=== PATIENT | female | born 1935 | race Caucasian/White ===

== ENCOUNTER 2017-11-12 18:33 | Inpatient (IN) ==
[2017-11-12] MEDS ORDERED: Furosemide 40 MG TABLET PO PRN (19:27)
[2017-11-12] MEDS ORDERED: MOM Conc 10 ML UD.LIQ PO PRN (19:27)
[2017-11-12] MEDS: Sennosides/Docusate Sodium TABLET PO SCH (21:46)
[2017-11-12] MEDS: OXYCODONE Oral CONC 10 MG/0.5 ML ORAL.SYG SL PRN (22:02)
[2017-11-13] MEDS: *HR* Enoxaparin 30 MG/0.3 ML SYRINGE SQ SCH ×2 (05:41→19:59)
[2017-11-13 06:37] LABS: Basophils % 0.3 %; Eosinophils # 0.2 K/mcL (0.0-0.6); Eosinophils % 3.8 %; Hematocrit 23.9 % (35.3-44.9); Immature Granulocytes % 0.8 % (0-4); Lymphocytes # 0.9 K/mcL (0.6-4.6); Lymphocytes % 13.7 %; Mean Corpuscular HGB Conc 33.5 g/dL (31.6-35.5); Mean Corpuscular Hemoglobin 32.3 pg (28.0-33.3); Mean Corpuscular Volume 96.4 fL (83.0-100.0); Mean Platelet Volume 8.4 fL (9.4-12.4); Monocytes # 0.7 K/mcL (0.0-1.3); Monocytes % 10.7 %; Neutrophils # 4.5 K/mcL (1.6-8.9); Platelet Count 279 K/mcL (140-400); Red Blood Count 2.48 M/mcL (3.82-4.97); Red Cell Distribution Width 14.7 % (11.5-14.5); Segmented Neutrophils % 70.7 %
[2017-11-13 06:46] LABS: Activated Partial Thrombo Time 29.6 Seconds (26.0-36.0)
[2017-11-13 06:54] LABS: BUN/Creatinine Ratio 13 (6-26); Blood Urea Nitrogen 12 mg/dL (8-23); Calcium 8.4 mg/dL (8.6-10.3); Carbon Dioxide 27 mEq/L (23-29); Chloride 98 mEq/L (98-107); Glucose 92 mg/dL (70-105); Osmolality,Calculated 267 (280-300); Potassium 4.3 mEq/L (3.5-5.1); Sodium 129 mEq/L (136-145); eGFR For African Americans > 60 (> 60); eGFR For Non-African Americans 58 (> 60)
[2017-11-13] MEDS: Multivit/Ca/Min/Fe/FA 1 TAB TABLET PO SCH (10:00)
[2017-11-13] MEDS: Primidone 50 MG TABLET PO SCH (10:00)
[2017-11-13] MEDS: Ascorbic Acid 500 MG TABLET PO SCH ×2 (10:01→18:21)
[2017-11-13] MEDS: Sennosides/Docusate Sodium TABLET PO SCH ×2 (10:01→22:07)
[2017-11-13] MEDS: OXYCODONE Oral CONC 10 MG/0.5 ML ORAL.SYG SL PRN (10:01)
--- NOTE | 2017-11-13 12:07 | Internal Med History&Physical ---
Date of Encounter: 11/13/17 Time of Encounter: 12:05 Assessment and Plan (1) S/P hip replacement Current visit: Yes Status: Acute Patient is a recent. Patient underwent left hip hemiarthroplasty on 11/08/2017 and has been recovering well. Patient transferred to this facility for rehabilitation due to deconditioning and unsteady gait. Surgical incision appears healthy at site. Pain is well-controlled with current medications. Patient to be evaluated by physical therapy and awaiting recommendations. Qualifiers: Laterality: left Qualified Code(s): Z96.642 - Presence of left artificial hip joint (2) Urine retention Current visit: Yes Status: Acute Experienced urinary retention postoperatively and had a Leblanc catheter placed prior to her discharge and transferred to this facility. Patient denies any history of UTIs or urinary issues. Patient had urinalysis obtained with culture returning negative. We will start patient on voiding trials to discontinue Leblanc catheter. (3) DVT prophylaxis Current visit: No Status: Acute Patient continues on Lovenox for DVT prophylaxis secondary to orthopedic surgery. We will continue on DVT prophylaxis until patient mobilizes well (4) PAC (premature atrial contraction) Current visit: Yes Status: Acute There is family stated concerns about possible atrial fibrillation. Daughter states that she was informed her mother was in atrial fibrillation at time of admission. Medical records were reviewed which showed several EKGs taken during her hospital stay with each showing sinus rhythm with occasional PACs/ PVCs. No documentation of atrial fibrillation was found. Patient's vital signs had remained stable during her hospitalization. Patient denies any history of palpitations or syncopal symptoms. On exam patient's heart rate was regular with rate of 84. We will continue to monitor and continue with current medications. Patient's current area status was explained at length with family. Internal Medicine - H&P: HPI Chief complaint: left hip replacement Admitted From: Intrahospital Transfer Plans for Post Hospital Care: Home History of present illness: Ms. Narvaez is a 82 year old female who experienced a mechanical fall, which resulted in a left hip fracture. Patient underwent left hip hemiarthroplasty on 11/08/2017. She had a uneventful recovery and was transferred to this facility for further rehabilitation due to deconditioning and unsteady gait. Patient's family stated concerns that they were informed that she had atrial fibrillation during her admission to the [facility], she had several EKGs were taken which showed sinus rhythm with PACs and PVCs. Urinalysis was suggestive of infection but urine culture showed no growth. Patient is doing well at this time although she has issues with urinary retention and was discharged to rehabilitation with a Leblanc catheter, for voiding trial. Currently Leblanc catheter has clear yellow urine received. Patient states that her pain is minimal to her left hip and pain has been well- controlled with current medications. Patient states that she had a BM this morning. Patient has been very appropriate with conversation, but family states that she has a history of mild dementia and poor short-term memory Past Med Surg Social Fam HX - Past Medical History Medical history: no medical history, dementia, myocardial infarction Psychiatric history: anxiety, depression - Past Surgical History Surgical History: hysterectomy, thyroidectomy - Social History Smoking Status: Former smoker Smokeless Tobacco Status: No Alcohol use: none Drug use: none - Family History Mother Adopted: No Family Member Ethnicity: Non- Living Status: Age at : 59 Cause of : Emphysema Hx Family Respiratory Disorders: Yes (emphysema) Father Adopted: No Family Member Ethnicity: Non- Living Status: Age at : 77 Hx Family Cardiac Disorders: Yes (heart disease, pacemaker placement) Internal Medicine - H&P: Meds Butalbital/Acetaminophen [Butalbital-Acetaminophn 50-325] 1 tab PO Q12HR PRN [History] Escitalopram [Lexapro] 10 mg PO DAILY 11/07/17 [History] Furosemide [Lasix] 40 mg PO QAM PRN 11/07/17 [History] Levothyroxine [Synthroid] 50 mcg PO 0630 11/07/17 [History] Memantine [Namenda] 10 mg PO BID 11/07/17 [History] Omeprazole [PriLOSEC] 40 mg PO DAILY 11/07/17 [History] Primidone [Mysoline] 50 mg PO 0900 11/07/17 [History] Ascorbic Acid [Vitamin C] 500 mg PO BIDWM tablet 11/12/17 [Rx] Enoxaparin [Lovenox] 30 mg SQ Q12HCO syringe 11/12/17 [Rx] Ferrous Sulfate 325 mg PO BIDWM tablet 11/12/17 [Rx] MOM Conc [MILK OF MAGNESIA conc] 5 ml PO HS PRN ud.liq 11/12/17 [Rx] Multivit/Ca/Min/Fe/FA [Thera M Plus] 1 tab PO DAILY tablet 11/12/17 [Rx] OXYCODONE Oral CONC [Oxycodone Oral Conc] 10 mg SL Q4H PRN 5 Days oral.syg [Rx] Sennosides/Docusate Sodium [Senna Plus] 1 each PO BID tablet 11/12/17 [Rx] 3 Allergy/AdvReac Type Severity Reaction Status Date / Time No Known Allergies Allergy Verified 11/07/17 01:18 All Systems PM: A 10-system review of systems was performed and is negative for pertinent findings except as documented above in the HPI. - Constitutional Constitutional: no chills, no fever(s), no night sweats - EENT Eyes: no change in vision, no discharge, no pain, no photophobia Ears: no ear discharge, no ear pain, no tinnitus Nose, mouth and throat: no dysphagia, no nasal discharge, no neck pain, no sore throat - Cardiovascular Cardiovascular ROS IM: no chest pain, no diaphoresis, no dyspnea, no lightheadedness, no palpitations, no syncope - Respiratory Respiratory: no cough, no dyspnea, no wheezing, no excessive phlegm production - Gastrointestinal Gastrointestinal: no abdominal pain, no diarrhea, no hematemesis, no hematochezia, no melena, no nausea, no vomiting - Genitourinary Genitourinary: as per HPI, no change in urinary stream, no dysuria, no flank pain, no hematuria - Musculoskeletal Musculoskeletal ROS IM: as per HPI, no numbness, no tingling - Integumentary Integumentary IM: no rash, no unusual bruising - Neurological Neurological ROS: as per HPI, no confusion, no convulsions, no focal weakness, no numbness, no tingling, no tremor(s) - Hematologic/Lymphatic Hematologic/Lymphatic: no easy bruising - Constitutional Vitals: Temp Pulse Resp BP Pulse Ox 98.2 F 78 16 90/53 97 11/13/17 11:52 11/13/17 11:52 11/13/17 11:52 11/13/17 11:52 11/13/17 11:52 General appearance: Present: A&O X 3, pleasant - Head Head exam: Present: atraumatic, normocephalic - Eye Eye exam: Present: PERRL, conjuntiva pink, sclera anicteric Pupils: Present: PERRL - Neck Neck exam general surgery: Present: supple, trachea midline. Absent: lymphadenopathy - Respiratory Respiratory exam: Present: CTAB. Absent: accessory muscle use, rales, rhonchi, wheezes - Cardiovascular Cardiovascular exam: Present: RRR, +S1, +S2. Absent: diastolic murmur, gallop, rubs, systolic murmur - GI/Abdominal GI/Abdominal exam: Present: normal bowel sounds, soft, no peritoneal signs. Absent: distended, tenderness - Extremities Exam Extremities exam: Present: warm, radial pulses palpable and symmetrical. Absent : calf tenderness, cyanotic, pedal edema Additional comments: Left hip surgical incision appears dry and intact. - Neurological Exam Neurological exam: Present: CN II-XII intact, oriented X3, no focal deficits. Absent: pronater drift, facial droop, speech deficit Additional comments: Currently patient's short-term recall appears intact. - Skin Skin exam: Present: dry, intact Internal Med - H&P Results - Labs CBC & Chem 7: 11/13/17 06:30 11/13/17 06:30 Labs: Short CBC 11/13/17 Range/Units 06:30 WBC 6.4 (4.3-11.1) K/mcL Hgb 8.0 L (11.5-15.4) g/dL Hct 23.9 L (35.3-44.9) % Plt Count 279 (140-400) K/mcL Neutrophils # 4.5 (1.6-8.9) K/mcL BMP 11/13/17 06:30 Sodium 129 L Potassium 4.3 Chloride 98 Carbon Dioxide 27 BUN 12 Creatinine 0.92 Glucose 92 Calcium 8.4 L
[2017-11-14] MEDS: *HR* Enoxaparin 30 MG/0.3 ML SYRINGE SQ SCH ×2 (06:25→19:26)
[2017-11-14] MEDS: Multivit/Ca/Min/Fe/FA 1 TAB TABLET PO SCH (10:33)
[2017-11-14] MEDS: Sennosides/Docusate Sodium TABLET PO SCH ×2 (10:33→23:11)
[2017-11-14] MEDS: Ascorbic Acid 500 MG TABLET PO SCH ×2 (10:33→19:24)
[2017-11-14] MEDS: Primidone 50 MG TABLET PO SCH (10:33)
[2017-11-14] MEDS: OXYCODONE Oral CONC 10 MG/0.5 ML ORAL.SYG SL PRN (10:33)
--- NOTE | 2017-11-14 11:26 | Internal Med Progress Note ---
Date of Encounter: 11/14/17 Time of Encounter: 11:24 - Assessment and plan (1) S/P hip replacement Current Visit: Yes Status: Acute Assessment and plan: No acute issues. Left hip surgical incision appears healthy. Patient to begin physical therapy today. States minimal discomfort. Continue with current plan of care Qualifiers: Laterality: left Qualified Code(s): Z96.642 - Presence of left artificial hip joint (2) Urine retention Current Visit: Yes Status: Acute Assessment and plan: Patient had Leblanc catheter removed this morning. We will continue to monitor. Voiding trial. If no void within 6-8 hours will straight catheter if greater than 350 mL shows on bladder scan (3) DVT prophylaxis Current Visit: No Status: Acute (4) PAC (premature atrial contraction) Current Visit: Yes Status: Acute Assessment and plan: air sampling and monitoring continued to show sinus rhythm with occasional PACs. Ventricular rate less than 100 - Time Spent With Patient less than 15 minutes - Subjective Interval history: Patient appears relaxed and denies any current discomforts or shortness of breath. He was mild dementia and is a poor historian. No reported behaviors from nursing - Constitutional Vitals: Temp Pulse Resp BP Pulse Ox 98.6 F 84 16 125/64 95 11/14/17 07:12 11/14/17 07:12 11/14/17 07:12 11/14/17 07:12 11/14/17 07:12 General appearance: Present: A&O X 3, pleasant Exam: Patient oriented, but has history of short-term memory loss. - Head Head exam: Present: atraumatic, normocephalic - Eye Eye exam: Present: PERRL, conjuntiva pink, sclera anicteric Pupils: Present: PERRL - Neck Neck exam general surgery: Present: supple, trachea midline. Absent: lymphadenopathy - Respiratory Respiratory exam: Present: CTAB. Absent: accessory muscle use, rales, rhonchi, wheezes - Cardiovascular Cardiovascular exam: Present: RRR, +S1, +S2. Absent: diastolic murmur, gallop, rubs, systolic murmur Additional comments: air sampling and monitoring showed sinus rhythm with occasional PACs - GI/Abdominal GI/Abdominal exam: Present: normal bowel sounds, soft, no peritoneal signs. Absent: distended, tenderness - Extremities Exam Extremities exam: Present: warm, radial pulses palpable and symmetrical. Absent : calf tenderness, cyanotic, pedal edema Additional comments: Left hip surgical incision appears healthy with dressing dry and intact - Neurological Exam Neurological exam: Present: CN II-XII intact, oriented X3, no focal deficits. Absent: pronater drift, facial droop, speech deficit - Skin Skin exam: Present: dry, intact Internal Medicine: Result - Labs CBC & Chem 7: 11/13/17 06:30 11/13/17 06:30 - ABG Interpretation ABG results: PT/INR, D-dimer PT 11.0 Seconds (9.4-12.1) 11/13/17 06:30 Consult Discharge Plan - Plan Referrals: Augustin Barahona MD [Primary Care Provider] -
[2017-11-14 16:51] LABS: BUN/Creatinine Ratio 16 (6-26); Blood Urea Nitrogen 14 mg/dL (8-23); Calcium 8.5 mg/dL (8.6-10.3); Carbon Dioxide 24 mEq/L (23-29); Chloride 99 mEq/L (98-107); Glucose 107 mg/dL (70-105); Osmolality,Calculated 271 (280-300); Potassium 4.3 mEq/L (3.5-5.1); Sodium 130 mEq/L (136-145); eGFR For African Americans > 60 (> 60); eGFR For Non-African Americans > 60 (> 60)
[2017-11-14] MEDS: Bisacodyl 10 MG RECTAL SUPPOSITORY RC SCH (19:24)
[2017-11-15] MEDS: *HR* Enoxaparin 30 MG/0.3 ML SYRINGE SQ SCH ×2 (06:05→17:36)
[2017-11-15] MEDS: Primidone 50 MG TABLET PO SCH (09:52)
[2017-11-15] MEDS: Ascorbic Acid 500 MG TABLET PO SCH ×2 (09:52→17:36)
[2017-11-15] MEDS: Sennosides/Docusate Sodium TABLET PO SCH ×2 (09:52→20:18)
[2017-11-15] MEDS: Multivit/Ca/Min/Fe/FA 1 TAB TABLET PO SCH (09:52)
[2017-11-15] MEDS: Bisacodyl 10 MG RECTAL SUPPOSITORY RC SCH (09:53)
--- NOTE | 2017-11-15 11:24 | Internal Med Progress Note ---
Date of Encounter: 11/15/17 Time of Encounter: 11:22 - Assessment and plan (1) Left displaced femoral neck fracture Current Visit: No Status: Acute Assessment and plan: stable .Pain is well controlled rehab in progress (2) Iron deficiency anemia Current Visit: No Status: Chronic Assessment and plan: on iron tabs tolerating it well Qualifiers: Iron deficiency anemia type: unspecified iron deficiency Qualified Code(s) : D50.9 - Iron deficiency anemia, unspecified (3) Hypothyroid Current Visit: No Status: Chronic Assessment and plan: on meds tolerating it well recheck labs Qualifiers: Hypothyroidism type: unspecified Qualified Code(s): E03.9 - Hypothyroidism , unspecified - Time Spent With Patient 25 - 35 minutes - Subjective Interval history: no new complains her pain is well controlled no fever or chills no nausea vomiting or diarrhea she is actively participating in rehab - Constitutional Vitals: Temp Pulse Resp BP Pulse Ox 98.3 F 83 16 122/61 96 11/15/17 07:08 11/15/17 07:08 11/15/17 07:08 11/15/17 07:08 11/15/17 07:08 General appearance: Present: A&O X 3, pleasant - Head Head exam: Present: atraumatic - Eye Eye exam: Present: EOMI, PERRL. Absent: scleral icterus, conjuntiva pink - Neck Neck exam general surgery: Absent: tenderness, nuchal rigidity - Respiratory Respiratory exam: Present: CTAB. Absent: decreased breath sounds, respiratory distress, rhonchi, stridor, wheezes - Cardiovascular Cardiovascular exam: Present: RRR, +S1, +S2. Absent: irregular rhythm, JVD - GI/Abdominal GI/Abdominal exam: Present: normal bowel sounds, soft. Absent: distended, firm , guarding, rebound, rigid, tenderness - Extremities Exam Extremities exam: Absent: pedal edema, tenderness - Neurological Exam Neurological exam: Present: alert, CN II-XII intact, oriented X3, no focal deficits, strengths equal and symetr throughout. Absent: facial droop, speech deficit Internal Medicine: Result - Labs CBC & Chem 7: 11/13/17 06:30 11/14/17 15:50 Labs: BMP 11/14/17 15:50 Sodium 130 L Potassium 4.3 Chloride 99 Carbon Dioxide 24 BUN 14 Creatinine 0.88 Glucose 107 H Calcium 8.5 L - ABG Interpretation ABG results: PT/INR, D-dimer PT 11.0 Seconds (9.4-12.1) 11/13/17 06:30 Consult Discharge Plan - Plan Referrals: Augustin Barahona MD [Primary Care Provider] -
[2017-11-15 19:01] LABS: Vitamin B12 1078 pg/mL (250-1100)
[2017-11-15 19:02] LABS: Folate > 22.3 ng/mL (3.0-16.0)
[2017-11-15] MEDS: OXYCODONE Oral CONC 10 MG/0.5 ML ORAL.SYG SL PRN (20:18)
[2017-11-16] MEDS: *HR* Enoxaparin 30 MG/0.3 ML SYRINGE SQ SCH ×2 (05:23→17:29)
[2017-11-16] MEDS: Primidone 50 MG TABLET PO SCH (09:41)
[2017-11-16] MEDS: Acetaminophen 325 MG TABLET PO SCH ×3 (09:41→21:06)
[2017-11-16] MEDS: Sennosides/Docusate Sodium TABLET PO SCH ×2 (09:42→21:05)
[2017-11-16] MEDS: Multivit/Ca/Min/Fe/FA 1 TAB TABLET PO SCH (09:43)
[2017-11-16] MEDS: Ascorbic Acid 500 MG TABLET PO SCH ×2 (09:43→17:29)
[2017-11-16] MEDS: Bisacodyl 10 MG RECTAL SUPPOSITORY RC SCH (09:43)
--- NOTE | 2017-11-16 10:33 | Internal Med Progress Note ---
Date of Encounter: 11/16/17 Time of Encounter: 10:32 - Assessment and plan (1) Left displaced femoral neck fracture Current Visit: No Status: Acute Assessment and plan: stable and improving pain is well controlled Tylenol for pain in between as needed (2) Iron deficiency anemia Current Visit: No Status: Chronic Assessment and plan: on iron supplement stable other labs B12 etc are within normal range Qualifiers: Iron deficiency anemia type: unspecified iron deficiency Qualified Code(s) : D50.9 - Iron deficiency anemia, unspecified (3) Hypothyroid Current Visit: No Status: Chronic Assessment and plan: stable Qualifiers: Hypothyroidism type: unspecified Qualified Code(s): E03.9 - Hypothyroidism , unspecified (4) Hyponatremia Current Visit: Yes Status: Acute Assessment and plan: cause not know . She is on Lasix but she is taking as as needed .Her use of laisx is primarly for her leg edema however on exam i don't see and pitting edema . Adviced not to use Lasix and do only conservative management. Most likely its due to use of Laisx needs to be followed . Urine and serum osmolarity - Subjective Interval history: No new complains feels fine eating well No fever or chills pain is well controlled . Tylenol as needed - Constitutional Vitals: Temp Pulse Resp BP Pulse Ox 97.8 F 66 18 129/57 97 11/16/17 07:57 11/16/17 07:57 11/16/17 07:57 11/16/17 07:57 11/16/17 07:57 General appearance: Present: A&O X 3, pleasant - Head Head exam: Present: atraumatic - Eye Eye exam: Present: EOMI, PERRL. Absent: scleral icterus, conjuntiva pink - Neck Neck exam general surgery: Present: supple. Absent: tenderness, nuchal rigidity - Respiratory Respiratory exam: Present: CTAB. Absent: rales, respiratory distress, rhonchi, stridor, wheezes, tachypnea - Cardiovascular Cardiovascular exam: Present: +S1, +S2. Absent: irregular rhythm, JVD Additional comments: monitor occasional PVC no evidence that she had flutter or A fib - GI/Abdominal GI/Abdominal exam: Present: normal bowel sounds, soft. Absent: distended, guarding, rigid, tenderness - Extremities Exam Extremities exam: Absent: pedal edema, tenderness Additional comments: no pitting edema noted - Incison Incision: Present: clean and dry, intact. Absent: draining, red, swollen, erythema - Neurological Exam Neurological exam: Present: CN II-XII intact, oriented X3, no focal deficits. Absent: facial droop, speech deficit Internal Medicine: Result - Labs CBC & Chem 7: 11/13/17 06:30 11/15/17 12:05 Labs: BMP 11/15/17 12:05 Sodium 129 L - ABG Interpretation ABG results: PT/INR, D-dimer PT 11.0 Seconds (9.4-12.1) 11/13/17 06:30 Consult Discharge Plan - Plan Referrals: Augustin Barahona MD [Primary Care Provider] -
[2017-11-17] MEDS: OXYCODONE Oral CONC 10 MG/0.5 ML ORAL.SYG SL PRN (04:21)
[2017-11-17] MEDS: *HR* Enoxaparin 30 MG/0.3 ML SYRINGE SQ SCH (05:41)
[2017-11-17 06:16] LABS: BUN/Creatinine Ratio 12 (6-26); Basophils # 0.1 K/mcL (0.0-0.2); Basophils % 0.7 %; Blood Urea Nitrogen 9 mg/dL (8-23); Calcium 8.4 mg/dL (8.6-10.3); Carbon Dioxide 27 mEq/L (23-29); Chloride 102 mEq/L (98-107); Eosinophils # 0.3 K/mcL (0.0-0.6); Eosinophils % 4.4 %; Glucose 95 mg/dL (70-105); Hematocrit 23.8 % (35.3-44.9); Immature Granulocytes % 1.5 % (0-4); Lymphocytes # 1.1 K/mcL (0.6-4.6); Lymphocytes % 14.7 %; Mean Corpuscular HGB Conc 33.6 g/dL (31.6-35.5); Mean Corpuscular Hemoglobin 33.1 pg (28.0-33.3); Mean Corpuscular Volume 98.3 fL (83.0-100.0); Mean Platelet Volume 8.4 fL (9.4-12.4); Monocytes # 0.7 K/mcL (0.0-1.3); Osmolality,Calculated 276 (280-300); Platelet Count 405 K/mcL (140-400); Potassium 4.1 mEq/L (3.5-5.1); Red Blood Count 2.42 M/mcL (3.82-4.97); Red Cell Distribution Width 15.5 % (11.5-14.5); Segmented Neutrophils % 69.7 %; Sodium 134 mEq/L (136-145); eGFR For African Americans > 60 (> 60); eGFR For Non-African Americans > 60 (> 60)
[2017-11-17] MEDS: Ascorbic Acid 500 MG TABLET PO SCH ×2 (07:44→08:40)
[2017-11-17] MEDS: Primidone 50 MG TABLET PO SCH (08:39)
[2017-11-17] MEDS: Multivit/Ca/Min/Fe/FA 1 TAB TABLET PO SCH (08:39)
[2017-11-17] MEDS: Acetaminophen 325 MG TABLET PO SCH ×3 (08:40→21:56)
[2017-11-17] MEDS: Sennosides/Docusate Sodium TABLET PO SCH ×2 (08:40→21:56)
[2017-11-17] MEDS: Bisacodyl 10 MG RECTAL SUPPOSITORY RC SCH (08:41)
--- NOTE | 2017-11-17 16:55 | Internal Med Progress Note ---
Date of Encounter: 11/17/17 Time of Encounter: 16:53 - Assessment and plan (1) S/P hip replacement Current Visit: Yes Status: Acute Assessment and plan: No acute issues. Left hip surgical incision appears healthy. Patient progressed well with physical therapy. States minimal discomfort. Continue with current plan of care Qualifiers: Laterality: left Qualified Code(s): Z96.642 - Presence of left artificial hip joint (2) Urine retention Current Visit: No Status: Acute (3) DVT prophylaxis Current Visit: No Status: Acute (4) PAC (premature atrial contraction) Current Visit: No Status: Acute (5) Dementia Current Visit: Yes Status: Chronic Assessment and plan: Patient with documented history of dementia. Currently patient has some issues with short-term memory recall, but very appropriate with conversation and able to follow complex directions. We will continue with current medications. No reported behaviors. Family has stated concerns about patient being discharged to home due to her cognitive issues. Patient lives with who also has mild dementia. Patient support systems have been discussed with family at length and options presented. Qualifiers: Dementia type: unspecified type Dementia behavioral disturbance: without behavioral disturbance Qualified Code(s): F03.90 - Unspecified dementia without behavioral disturbance - Time Spent With Patient less than 15 minutes - Subjective Interval history: Patient appears relaxed and denies any current discomforts or shortness of breath. He was mild dementia and is a poor historian, but is able to answer complex questions appropriately. No reported behaviors from nursing - Constitutional Vitals: Temp Pulse Resp BP Pulse Ox 97.7 F 74 16 101/55 97 11/17/17 11:00 11/17/17 11:00 11/17/17 11:00 11/17/17 11:00 11/17/17 11:00 General appearance: Present: A&O X 3, pleasant - Head Head exam: Present: atraumatic, normocephalic - Eye Eye exam: Present: PERRL, conjuntiva pink, sclera anicteric Pupils: Present: PERRL - Neck Neck exam general surgery: Present: supple, trachea midline. Absent: lymphadenopathy - Respiratory Respiratory exam: Present: CTAB. Absent: accessory muscle use, rales, rhonchi, wheezes - Cardiovascular Cardiovascular exam: Present: RRR, +S1, +S2. Absent: diastolic murmur, gallop, rubs, systolic murmur - GI/Abdominal GI/Abdominal exam: Present: normal bowel sounds, soft, no peritoneal signs. Absent: distended, tenderness - Extremities Exam Extremities exam: Present: warm, radial pulses palpable and symmetrical. Absent : calf tenderness, cyanotic, pedal edema Additional comments: Left hip surgical site appears healthy and intact - Neurological Exam Neurological exam: Present: CN II-XII intact, oriented X3, no focal deficits. Absent: pronater drift, facial droop, speech deficit Additional comments: With history of mild dementia, with poor short-term memory recall. Otherwise no acute neurological deficits noted on exam. - Skin Skin exam: Present: dry, intact Internal Medicine: Result - Labs CBC & Chem 7: 11/17/17 05:40 11/17/17 05:40 Labs: Short CBC 11/17/17 Range/Units 05:40 WBC 7.2 (4.3-11.1) K/mcL Hgb 8.0 L (11.5-15.4) g/dL Hct 23.8 L (35.3-44.9) % Plt Count 405 H (140-400) K/mcL Neutrophils # 5.0 (1.6-8.9) K/mcL BMP 11/17/17 05:40 Sodium 134 L Potassium 4.1 Chloride 102 Carbon Dioxide 27 BUN 9 Creatinine 0.76 Glucose 95 Calcium 8.4 L - ABG Interpretation ABG results: PT/INR, D-dimer PT 11.0 Seconds (9.4-12.1) 11/13/17 06:30 - VTE Documentation of Mechanical Device: Graduated compression elastic hosiery Consult Discharge Plan - Plan Referrals: Augustin Barahona MD [Primary Care Provider] -
[2017-11-18] MEDS: *HR* Enoxaparin 30 MG/0.3 ML SYRINGE SQ SCH ×3 (05:07→17:56)
[2017-11-18] MEDS: Sennosides/Docusate Sodium TABLET PO SCH ×2 (09:41→20:49)
[2017-11-18] MEDS: Ascorbic Acid 500 MG TABLET PO SCH ×2 (09:41→17:55)
[2017-11-18] MEDS: Multivit/Ca/Min/Fe/FA 1 TAB TABLET PO SCH (09:41)
[2017-11-18] MEDS: Primidone 50 MG TABLET PO SCH (09:41)
[2017-11-18] MEDS: Acetaminophen 325 MG TABLET PO SCH (09:42)
[2017-11-18] MEDS: Bisacodyl 10 MG RECTAL SUPPOSITORY RC SCH (09:45)
--- NOTE | 2017-11-18 10:52 | Internal Med Progress Note ---
Date of Encounter: 11/18/17 Time of Encounter: 10:49 - Assessment and plan (1) S/P hip replacement Current Visit: Yes Status: Acute Assessment and plan: No acute issues. Left hip surgical incision appears healthy. Patient continues to progress well with physical therapy. States minimal discomfort at times. Continue with current plan of care Qualifiers: Laterality: left Qualified Code(s): Z96.642 - Presence of left artificial hip joint (2) DVT prophylaxis Current Visit: No Status: Acute (3) Dementia Current Visit: Yes Status: Chronic Assessment and plan: Patient with documented history of dementia and namenda. Currently patient has some issues with occasional short-term memory recall, but very appropriate with conversation and able to follow complex directions. We will continue with current medications. No reported behaviors. Family has stated concerns about patient being discharged to home due to her cognitive issues. Patient lives with who also has mild dementia. Patient support systems have been discussed with family at length and options presented. Qualifiers: Dementia type: unspecified type Dementia behavioral disturbance: without behavioral disturbance Qualified Code(s): F03.90 - Unspecified dementia without behavioral disturbance - Time Spent With Patient less than 15 minutes - Subjective Interval history: Patient appears relaxed and denies any current discomforts or shortness of breath. He was mild dementia and is a poor historian, but is able to answer complex questions appropriately. No reported behaviors from nursing - Constitutional Vitals: Temp Pulse Resp BP Pulse Ox 97.8 F 77 16 136/67 97 11/18/17 07:04 11/18/17 07:04 11/18/17 07:04 11/18/17 07:04 11/18/17 07:04 General appearance: Present: A&O X 3, pleasant - Head Head exam: Present: atraumatic, normocephalic - Eye Eye exam: Present: PERRL, conjuntiva pink, sclera anicteric Pupils: Present: PERRL - Neck Neck exam general surgery: Present: supple, trachea midline. Absent: lymphadenopathy - Respiratory Respiratory exam: Present: CTAB. Absent: accessory muscle use, rales, rhonchi, wheezes - Cardiovascular Cardiovascular exam: Present: RRR, +S1, +S2. Absent: diastolic murmur, gallop, rubs, systolic murmur Additional comments: Heart rate has been regular during auscultation. Pt with recent Hx of SR with PAC. Pulse <100 - GI/Abdominal GI/Abdominal exam: Present: normal bowel sounds, soft, no peritoneal signs. Absent: distended, tenderness - Extremities Exam Extremities exam: Present: warm, radial pulses palpable and symmetrical. Absent : calf tenderness, cyanotic, pedal edema - Neurological Exam Neurological exam: Present: CN II-XII intact, oriented X3, no focal deficits. Absent: pronater drift, facial droop, speech deficit Additional comments: Patient with occasional mild confusion with some issues with short term recall. - Skin Skin exam: Present: dry, intact Internal Medicine: Result - Labs CBC & Chem 7: 11/17/17 05:40 11/17/17 05:40 - ABG Interpretation ABG results: PT/INR, D-dimer PT 11.0 Seconds (9.4-12.1) 11/13/17 06:30 - VTE Documentation of Mechanical Device: Graduated compression elastic hosiery Consult Discharge Plan - Plan Referrals: Augustin Barahona MD [Primary Care Provider] -
[2017-11-19] MEDS: *HR* Enoxaparin 30 MG/0.3 ML SYRINGE SQ SCH ×2 (05:46→18:14)
[2017-11-19] MEDS: Bisacodyl 10 MG RECTAL SUPPOSITORY RC SCH (09:07)
[2017-11-19] MEDS: Primidone 50 MG TABLET PO SCH (09:24)
[2017-11-19] MEDS: Sennosides/Docusate Sodium TABLET PO SCH ×2 (09:25→20:38)
[2017-11-19] MEDS: Ascorbic Acid 500 MG TABLET PO SCH ×2 (09:25→17:43)
[2017-11-19] MEDS: Multivit/Ca/Min/Fe/FA 1 TAB TABLET PO SCH (09:25)
--- NOTE | 2017-11-19 13:35 | Internal Med Progress Note ---
Date of Encounter: 11/19/17 Time of Encounter: 13:32 - Assessment and plan (1) S/P hip replacement Current Visit: Yes Status: Acute Assessment and plan: No acute issues. Left hip surgical incision appears healthy. Patient continues to progress well with physical therapy. States minimal discomfort at times and states well controlled with current meds. Continue with current plan of care Qualifiers: Laterality: left Qualified Code(s): Z96.642 - Presence of left artificial hip joint (2) Dementia Current Visit: Yes Status: Chronic Assessment and plan: Patient with documented history of dementia, but currently appears Ox3 and is appropriate with conversation. Pt does have issues with short-term memory recall at times. Does well with cueing Qualifiers: Dementia type: unspecified type Dementia behavioral disturbance: without behavioral disturbance Qualified Code(s): F03.90 - Unspecified dementia without behavioral disturbance - Subjective Interval history: Patient appears relaxed and denies any current discomforts or shortness of breath. Pt states pain well controlled with current med. - Constitutional Vitals: Temp Pulse Resp BP Pulse Ox 97.8 F 79 16 133/67 100 11/19/17 07:00 11/19/17 07:00 11/19/17 07:00 11/19/17 07:00 11/19/17 07:00 General appearance: Present: A&O X 3, pleasant - Head Head exam: Present: atraumatic, normocephalic - Eye Eye exam: Present: PERRL, conjuntiva pink, sclera anicteric Pupils: Present: PERRL - Neck Neck exam general surgery: Present: supple, trachea midline. Absent: lymphadenopathy - Respiratory Respiratory exam: Present: CTAB. Absent: accessory muscle use, rales, rhonchi, wheezes - Cardiovascular Cardiovascular exam: Present: RRR, +S1, +S2. Absent: diastolic murmur, gallop, rubs, systolic murmur - GI/Abdominal GI/Abdominal exam: Present: normal bowel sounds, soft, no peritoneal signs. Absent: distended, tenderness - Extremities Exam Extremities exam: Present: warm, radial pulses palpable and symmetrical. Absent : calf tenderness, cyanotic, pedal edema Additional comments: left hip/leg surgical incisions remain dry and intact with no signs of infection. - Neurological Exam Neurological exam: Present: CN II-XII intact, oriented X3, no focal deficits. Absent: pronater drift, facial droop, speech deficit - Skin Skin exam: Present: dry, intact Internal Medicine: Result - Labs CBC & Chem 7: 11/17/17 05:40 11/17/17 05:40 - ABG Interpretation ABG results: PT/INR, D-dimer PT 11.0 Seconds (9.4-12.1) 11/13/17 06:30 - VTE Documentation of Mechanical Device: Graduated compression elastic hosiery Consult Discharge Plan - Plan Referrals: Augustin Barahona MD [Primary Care Provider] -
[2017-11-19] MEDS: Acetaminophen 325 MG TABLET PO PRN (20:38)
[2017-11-20] MEDS: *HR* Enoxaparin 30 MG/0.3 ML SYRINGE SQ SCH ×2 (06:02→18:08)
[2017-11-20] MEDS: Primidone 50 MG TABLET PO SCH (08:05)
[2017-11-20] MEDS: Multivit/Ca/Min/Fe/FA 1 TAB TABLET PO SCH (08:06)
[2017-11-20] MEDS: Ascorbic Acid 500 MG TABLET PO SCH ×2 (08:06→18:08)
[2017-11-20] MEDS: Bisacodyl 10 MG RECTAL SUPPOSITORY RC SCH (08:06)
[2017-11-20] MEDS: Sennosides/Docusate Sodium TABLET PO SCH ×2 (08:07→22:08)
[2017-11-20] MEDS: Acetaminophen 325 MG TABLET PO PRN (22:09)
[2017-11-21] MEDS: *HR* Enoxaparin 30 MG/0.3 ML SYRINGE SQ SCH (06:54)
[2017-11-21 07:08] VITALS: BP 126/62
[2017-11-21] MEDS: Acetaminophen 325 MG TABLET PO PRN (09:36)
[2017-11-21] MEDS: Ascorbic Acid 500 MG TABLET PO SCH (09:37)
[2017-11-21] MEDS: Multivit/Ca/Min/Fe/FA 1 TAB TABLET PO SCH (09:37)
[2017-11-21] MEDS: Sennosides/Docusate Sodium TABLET PO SCH (09:37)
[2017-11-21] MEDS: Bisacodyl 10 MG RECTAL SUPPOSITORY RC SCH (09:37)
[2017-11-21] MEDS: Primidone 50 MG TABLET PO SCH (09:37)
--- NOTE | 2017-11-21 11:27 | Physician Discharge Referral ---
Home Health/Hosp Referral Info Transfer to: Home Health - Diagnosis (1) S/P hip replacement Priority: Primary Status: Acute (2) Dementia Priority: Secondary Status: Chronic - Respiratory Orders Smoking Cessation: Smoking cessation has been advised. For more information, call the [place] Tobacco Quit Line at 4-201-SBGE-NOW. - Diet/Nutrition Diet/Nutrition Orders: Regular - Activity Activity Orders: Walker - Services Needed Following services are medically necessary services: Nursing, Home Health Aide, Physical Therapy, Occupational Therapy - Transfer Medications Home Medications: Butalbital/Acetaminophen [Butalbital-Acetaminophn 50-325] 1 tab PO Q12HR PRN [History] Escitalopram [Lexapro] 10 mg PO DAILY 11/07/17 [History] Furosemide [Lasix] 40 mg PO QAM PRN 11/07/17 [History] Levothyroxine [Synthroid] 50 mcg PO 0630 11/07/17 [History] Memantine [Namenda] 10 mg PO BID 11/07/17 [History] Omeprazole [PriLOSEC] 40 mg PO DAILY 11/07/17 [History] Primidone [Mysoline] 50 mg PO 0900 11/07/17 [History] Ascorbic Acid [Vitamin C] 500 mg PO BIDWM tablet 11/12/17 [Rx] Enoxaparin [Lovenox] 30 mg SQ Q12HCO syringe 11/12/17 [Rx] Ferrous Sulfate 325 mg PO BIDWM tablet 11/12/17 [Rx] MOM Conc [MILK OF MAGNESIA conc] 5 ml PO HS PRN ud.liq 11/12/17 [Rx] Multivit/Ca/Min/Fe/FA [Thera M Plus] 1 tab PO DAILY tablet 11/12/17 [Rx] OXYCODONE Oral CONC [Oxycodone Oral Conc] 10 mg SL Q4H PRN 5 Days oral.syg [Rx] Sennosides/Docusate Sodium [Senna Plus] 1 each PO BID tablet 11/12/17 [Rx] Acetaminophen [Tylenol] 650 mg PO Q6HR PRN tablet 11/21/17 [Rx] Allergies/Adverse Reactions: 3 Allergy/AdvReac Type Severity Reaction Status Date / Time No Known Allergies Allergy Verified 11/07/17 01:18 Certification: Further, I certify that my clinical findings support that this patient is homebound (i.e. absences from home require considerable and taxing effort and are for medical reasons or sikhism services or infrequently or short duration when for other reasons) because: Homebound Reason: Patient requires assistance of a person or device to safely leave home, Post-surgery restriction and or conditions limit ability to leave home Attestation: My signature below is to certify that this patient is under my care and that I, or nurse practitioner, or a physician's assistant professor of business working with me, has a face-to -face encounter with this patient.
--- NOTE | 2017-11-21 11:32 | Discharge Summary ---
Date of Encounter: 11/21/17 Time of Encounter: 11:30 - Discharge Diagnosis (1) S/P hip replacement Priority: Primary Status: Acute Comments: Will continue PT\OT with home health. Follow up with ortho as scheduled. Qualifiers: Laterality: left Qualified Code(s): Z96.642 - Presence of left artificial hip joint (2) Dementia Priority: Secondary Status: Chronic Comments: Continue supportive care. Follow up with PCP Qualifiers: Dementia type: unspecified type Dementia behavioral disturbance: without behavioral disturbance Qualified Code(s): F03.90 - Unspecified dementia without behavioral disturbance Hospital course: Ms. Narvaez is a 82 year old female - Time Spent with Patient Total time spent providing and/or coordinating discharge services: - Discharge Medications Home Medications: Butalbital/Acetaminophen [Butalbital-Acetaminophn 50-325] 1 tab PO Q12HR PRN [History] Escitalopram [Lexapro] 10 mg PO DAILY 11/07/17 [History] Furosemide [Lasix] 40 mg PO QAM PRN 11/07/17 [History] Levothyroxine [Synthroid] 50 mcg PO 0630 11/07/17 [History] Memantine [Namenda] 10 mg PO BID 11/07/17 [History] Omeprazole [PriLOSEC] 40 mg PO DAILY 11/07/17 [History] Primidone [Mysoline] 50 mg PO 0900 11/07/17 [History] Ascorbic Acid [Vitamin C] 500 mg PO BIDWM tablet 11/12/17 [Rx] Enoxaparin [Lovenox] 30 mg SQ Q12HCO syringe 11/12/17 [Rx] Ferrous Sulfate 325 mg PO BIDWM tablet 11/12/17 [Rx] MOM Conc [MILK OF MAGNESIA conc] 5 ml PO HS PRN ud.liq 11/12/17 [Rx] Multivit/Ca/Min/Fe/FA [Thera M Plus] 1 tab PO DAILY tablet 11/12/17 [Rx] OXYCODONE Oral CONC [Oxycodone Oral Conc] 10 mg SL Q4H PRN 5 Days oral.syg [Rx] Sennosides/Docusate Sodium [Senna Plus] 1 each PO BID tablet 11/12/17 [Rx] Acetaminophen [Tylenol] 650 mg PO Q6HR PRN tablet 11/21/17 [Rx] Allergies/Adverse Reactions: 3 Allergy/AdvReac Type Severity Reaction Status Date / Time No Known Allergies Allergy Verified 11/07/17 01:18 Date of admission: 11/12/17 18:33 Primary care physician: Augustin Barahona, Consults: 11/12/17 19:33 Consult to Occupational Therapy [CONS] Routine Comment: Eval and Treat Reason for Consult: Eval and Treat Does patient have active BEDREST order?: No Is patient medically & hemodynamically stable?: Yes Patient assessed for mobility or mobilized this visit?: No Consult to Physical Therapy [CONS] Routine Comment: Eval and Treat Reason for Consult: Eval and Treat Does patient have active BEDREST order?: No Is patient medically & hemodynamically stable?: Yes Patient assessed for mobility or mobilized this visit?: No Consult to Recreational Therapy [CONS] Routine Comment: Consult to Garbage Stoker [CONS] Routine Reason for SW Consult: Discharge Planning 11/12/17 19:37 Consult to Psychiatry [CONS] Routine Consulting Provider: Steve Wetzel Reason for Consult: Eval and Treat Call Completed: No Discharging clinician: Debra Torres Anticipated date of discharge: 11/21/17 - Constitutional Vitals: Temp Pulse Resp BP Pulse Ox 98.0 F 78 16 126/62 99 11/21/17 07:06 11/21/17 07:06 11/21/17 07:06 11/21/17 07:06 11/21/17 07:06 General appearance: Present: A&O X 3, pleasant - Patient Status Disposition: Home Health Service Condition: Good Functional capacity at discharge: uses cane/walker Overall status at discharge: patient is progressing back to baseline - Discharge Instructions Follow Up With: Augustin Barahona MD [Primary Care Provider] - - Diet and Activity Activity: as per physical therapy Diet: advance to your usual diet - VTE Documentation of Mechanical Device: Graduated compression elastic hosiery
== END 2017-11-21 13:26 | disposition home health service (06) | DRG 560 ==
LOC: INPGRE 18:33